=== PATIENT | male | born 1990 | race Two or more races ===

== ENCOUNTER 2018-01-11 05:15 | Emergency (ER) | payer SELFPAY ==
[~2018-01-11] VITALS: Ht 188 cm; Wt 81.6 kg
[2018-01-11 05:20] VITALS: BP 142/79
[2018-01-11] MEDS ORDERED: PRED10DR OS (05:33)
[2018-01-11] MEDS ORDERED: HYDR-3164 PO (05:33)
--- NOTE | 2018-01-11 05:37 | PHYS DOC ---
Past Medical History Past Medical History: No Pertinent History Past Surgical History: No Surgical History Alcohol Use: Occasionally Drug Use: None Adult General Chief Complaint Chief Complaint: EYE PROBLEMS HPI HPI Patient is a 27 year old male who presents with bilateral drainage and discomfort. Patient has had symptoms over the last week. He complains that his eyes are matted shut in the mornings. He has drainage and conjunctival irritation and discomfort. Primarily in the right eye but has extended to the left eye in the last couple of days. He was exposed to someone with known conjunctivitis about one week earlier. Severe pain. Denies vision loss. No trauma. No foreign body sensation. Review of Systems Review of Systems Constitutional: Denies fever Eyes: Denies change in visual acuity HENT: Denies nasal congestion or sore throat Respiratory: Denies cough or shortness of breath Cardiovascular: No additional information not addressed in HPI Musculoskeletal: Denies back pain or joint pain Integument: Denies rash Neurologic: Denies headache Endocrine: Denies polyuria All other systems were reviewed and found to be within normal limits, except as documented in this note. Current Medications Current Medications Current Medications Medications (Trade) Dose Ordered Sig/Carol Start Time Stop Time Status Last Admin Dose Admin Polymyxin/ Trimethoprim Sulfate (Polytrim) 1 drop 1X ONCE 01/11/18 05:45 01/11/18 05:46 DC 01/11/18 05:49 1 DROP Allergies Allergies Allergies Coded Allergies Type Severity Reaction Last Updated Verified No Known Drug Allergies 01/11/18 No Physical Exam Physical Exam Constitutional: Well developed, well nourished, no acute distress, non-toxic appearance HENT: Normocephalic, atraumatic, bilateral external ears normal, oropharynx moist, no oral exudates Eyes: PERRLA, EOMI, conjunctival injection with chemosis of the right eye and more mild sx in the left. no severe pain with EOMI Neck: Normal range of motion, no tenderness Skin: Warm, dry, no erythema, no rash. Back: No tenderness Neurologic: Alert and oriented X 3 Psychologic: Affect normal Current Patient Data Vital Signs Vital Signs Date Time Temp Pulse Resp B/P (MAP) Pulse Ox O2 Delivery O2 Flow Rate FiO2 01/11/18 05:20 98.3 94 18 142/79 (100) 98 Room Air 98.3 EKG EKG [] Radiology/Procedures Radiology/Procedures [] Course & Med Decision Making Course & Med Decision Making Pertinent Labs and Imaging studies reviewed. (See chart for details) Patient is seen and examined immediately on arrival. Conjunctivitis in the right eye on physical exam and probable early conjunctivitis in the left. No vision loss. No hx of trauma and no FB. Patient is provided polytrim gtts in the ER and given the first dose. Discharged home with the same and with Rx for omnipred for comfort and swelling. [place] for more severe pain. Advised to return to the ER or f/u with ophtho if not improving in next 24-48 hours. Dragon Disclaimer Dragon Disclaimer This electronic medical record was generated, in whole or in part, using a voice recognition dictation system. Departure Departure Impression: Primary Impression: Conjunctivitis Disposition: 01 HOME, SELF-CARE Condition: GOOD Patient Instructions: Conjunctivitis (Viral and Bacterial) Scripts Hydrocodone/Apap 5-325 (NORCO 5-325 TABLET) 1 Each Tablet 1-2 EACH PO PRN Q6HRS PRN for PAIN, #15 as needed for pain Prov: NOEMI MARTINEZ DO 01/11/18 Prednisolone Acetate (OMNIPRED) 10 Ml Drops.susp 2 DROP OS TID, #5 ML 1 Refill Prov: NOEMI MARTINEZ DO 01/11/18 NOEMI MARTINEZ DO Jan 11, 2018 05:37
[2018-01-11] MEDS ORDERED: POLYMYXIN/TRIMETHOPRIM OPHTH SOLUTION 10ML BOTTLE. OU ONE (05:45)
== END 2018-01-11 05:55 | disposition home or self-care (01) ==
LOC: ER 05:15
DX: H10.89 Other conjunctivitis (principal)
CPT/HCPCS: 99283